=== PATIENT | male | born 1955 | race Two or more races ===

== ENCOUNTER 2017-08-27 07:25 | Outpatient (CLI) | payer OTHER | END 2017-08-27 07:34 | disposition home or self-care (01) | LOC: NUCLEAR 07:25 | DX: I20.8 Other forms of angina pectoris (principal) | CPT/HCPCS: 78452; 93017; A9500; J0153 ==

== ENCOUNTER 2018-11-17 10:33 | Outpatient (CLI) | payer OTHER | END 2018-11-17 14:40 | disposition home or self-care (01) | LOC: MRI 10:33 | DX: M25.561 Pain in right knee (principal); M25.562 Pain in left knee | CPT/HCPCS: 73721 ==

== ENCOUNTER 2018-11-22 09:04 | Outpatient (CLI) | payer OTHER | END 2018-11-22 09:14 | disposition home or self-care (01) | LOC: RAD 09:04 | DX: R07.89 Other chest pain (principal) ==

== ENCOUNTER 2018-11-22 09:17 | Outpatient (CLI) | payer OTHER | END 2018-11-22 09:22 | disposition home or self-care (01) | LOC: EKG 09:17 | DX: I10 Essential (primary) hypertension (principal) ==

== ENCOUNTER 2018-12-04 03:50 | Inpatient (IN) | payer OTHER ==
[~2018-12-04] VITALS: Ht 170.2 cm; Wt 108.9 kg
[2018-12-04] MEDS ORDERED: XARELTO20 MG (04:02)
[2018-12-04] MEDS ORDERED: METROPOLOL (04:03)
[2018-12-04] MEDS ORDERED: COZAAR50 MG (04:03)
[2018-12-04] MEDS ORDERED: ZANTAC300 MG (04:04)
[2018-12-05] MEDS ORDERED: METOPROLOL SUCC25 MG PO (07:55)
== END 2018-12-10 11:01 | disposition home or self-care (01) | DRG 416 ==
LOC: ER 03:50 → MEDJ 12-05 05:59
PROVIDERS: Specialist; ADMIT Internal Medicine Cardiovascular Disease
PROC: 0FT40ZZ Resection of Gallbladder, Open Approach (ICD-10-PCS; principal; 2018-12-06 12:00)
DX: K80.00 Calculus of gallbladder with acute cholecystitis without obstruction (principal); K82.A1 Gangrene of gallbladder in cholecystitis; K29.00 Acute gastritis without bleeding; I49.8 Other specified cardiac arrhythmias; I10 Essential (primary) hypertension; K44.9 Diaphragmatic hernia without obstruction or gangrene; K57.30 Diverticulosis of large intestine without perforation or abscess without bleeding; Z79.01 Long term (current) use of anticoagulants

== ENCOUNTER 2018-12-12 11:57 | Outpatient (CLI) | payer OTHER ==
[~2018-12-12 11:57] MED LIST: COZAAR50 MG; METOPROLOL SUCC25 MG PO; METROPOLOL; XARELTO20 MG; ZANTAC300 MG
== END 2018-12-12 15:00 | disposition home or self-care (01) ==
LOC: LAB 11:57
DX: I11.9 Hypertensive heart disease without heart failure (principal); R06.02 Shortness of breath; Z79.1 Long term (current) use of non-steroidal anti-inflammatories (NSAID); K80.00 Calculus of gallbladder with acute cholecystitis without obstruction

== ENCOUNTER 2018-12-12 12:23 | Outpatient (CLI) | payer OTHER | END 2018-12-12 12:24 | disposition home or self-care (01) | LOC: RAD 12:23 | DX: K80.00 Calculus of gallbladder with acute cholecystitis without obstruction (principal); R06.02 Shortness of breath; I11.9 Hypertensive heart disease without heart failure ==

== ENCOUNTER → 2018-12-13 08:30 | Outpatient (CLI) | payer OTHER | END | disposition home or self-care (01) | LOC: LAB 08:30 | DX: I11.9 Hypertensive heart disease without heart failure (principal); R06.02 Shortness of breath; Z79.1 Long term (current) use of non-steroidal anti-inflammatories (NSAID); K80.00 Calculus of gallbladder with acute cholecystitis without obstruction ==

== ENCOUNTER 2018-12-13 09:06 | Outpatient (CLI) | payer OTHER | END 2018-12-13 09:20 | disposition home or self-care (01) | LOC: TOM 09:06 | DX: I26.09 Other pulmonary embolism with acute cor pulmonale (principal); R06.02 Shortness of breath; R06.09 Other forms of dyspnea | CPT/HCPCS: 71275 ==

== ENCOUNTER 2019-06-30 13:18 | Outpatient (CLI) | payer OTHER | END 2019-06-30 13:55 | disposition home or self-care (01) | LOC: SONOGRAMA 13:18 | DX: M25.511 Pain in right shoulder (principal); M17.12 Unilateral primary osteoarthritis, left knee ==